=== PATIENT | female | born 1965 | race Caucasian/White ===

== ENCOUNTER → 2017-01-17 | Outpatient (CLI) | payer BC, MEDICARE ==
[~2017-01-17] MED LIST: AMLODIPINE BES2.5 MG PO; CLONAZEPAM0.5 MG PO; DESYREL50 MG PO; ESCITALOPRAM OX10 MG PO; FIORINAL 50-321 EACH PO; HYOMAX0.125 MG PO; HYOSCYAMINE0.125 M1 PO; HYZAAR1 TAB 100- PO; LOSARTAN-HCTZ1 EAC1; LOSARTAN-HCTZ1 EAC1 PO; NAMENDA XR28 MG; NORVASC2.5 MG PO; PHENERGAN25 M1 PO; PHENERGAN25 MG PO; RELPAX20 MG PO; TOPAMAX50 MG PO; VERAPAMIL ER100 MG PO; ZOFRAN PO; ZONEGRAN100 M1
--- NOTE | ~2017-01-17 | EKG ---
PATIENT: GREGORIO MARQUEZ UNIT #: [id number] Ventricular Rate: 58 BPM Atrial Rate: 58 BPM P-R Interval: 176 ms QRS Duration: 102 ms Q-T Interval: 448 ms QTC Calculation(Bezet): 439 ms P [place]: 31 degrees Calculated R [place]: 6 degrees Calculated T [place]: 32 degrees Diagnosis Line: Sinus bradycardia Diagnosis Line: Cannot rule out Anterior infarct , age Diagnosis Line: undetermined Diagnosis Line: Abnormal ECG Diagnosis Line: When compared with ECG of 06-JUL-2011 20:33, Diagnosis Line: No significant change was found Diagnosis Line: Confirmed by TIBURCIO VILLALOBOS MD ([id number]) on Diagnosis Line: 01/17/2017 12:40:57 PM INTERPRETING MD: WILFREDO YOUNG
[2017-01-17 11:26] LABS: HEMATOCRIT 38.8 % (35.0-45.0); HEMOGLOBIN 13.4 gm/dL (12.0-16.0); MEAN CORPUSCULAR HEMOGLOBIN 30.1 PG (28-34); MEAN CORPUSCULAR HGB CONC 34.6 g/dL (30-36); MEAN PLATELET VOLUME 6.4 FL (6.5-11.5); RED BLOOD COUNT 4.46 X10e (3.90-5.30); RED CELL DISTRIBUTION WIDTH 13.4 % (11.0-15.5); WHITE BLOOD COUNT 7.4 X10e3 (4.0-10.5)
[2017-01-17 12:13] LABS: ALBUMIN SERUM 4.1 g/dL (3.5-5.0); BILIRUBIN,TOTAL 1.2 mg/dL (0.2-2.0); BUN/CREATININE RATIO 18.57; CALCIUM SERUM 10.4 mg/dL (8.4-10.2); CREATININE SERUM 0.7 mg/dL (0.6-1.4); GLOM FILT RATE Estimated 99.6 mL/min (>60); POTASSIUM 3.2 mmol/L (3.5-5.1); PROTEIN TOTAL SERUM 6.6 g/dL (6.0-8.3)
[2017-01-17 12:22] LABS: URINE APPEARANCE CLEAR; URINE BILIRUBIN NEG (NEG); URINE BLOOD NEG (NEG); URINE COLOR YELLOW; URINE GLUCOSE NEG (NEG); URINE KETONE NEG (NEG); URINE LEUKOCYTE ESTERASE 2+ (NEG); URINE NITRATE NEG (NEG); URINE PH 7.5 (5-8); URINE PROTEIN NEG (NEG); URINE SPECIFIC GRAVITY 1.017 (1.003-1.035)
[2017-01-17 12:24] LABS: URBCS1 AUWI 0-2 /[HPF] (0-2); URINE BACTERIA AUWI NEG (NEGATIVE); URINE SQUAMOUS EPITHELIAL CELL FEW /[HPF]
[2017-01-17 12:32] LABS: URINE SOURCE CLEAN CATCH
== END | disposition home or self-care (01) ==
LOC: CAMB 10:00
PROVIDERS: Specialist
DX: Z01.818 Encounter for other preprocedural examination (principal); D35.1 Benign neoplasm of parathyroid gland; R94.31 Abnormal electrocardiogram [ECG] [EKG]; R00.1 Bradycardia, unspecified
CPT/HCPCS: 36415; 80053; 81003; 85027; 93005